=== PATIENT | female | born 1935 | race Caucasian/White ===

== ENCOUNTER → 2018-06-27 | Outpatient (REF) | LOC: ZLAB.WCH 18:02 | DX: Z01.89 Encounter for other specified special examinations (principal) ==

== ENCOUNTER → 2019-07-03 | Outpatient (REF) | LOC: COL.CARD 15:18 | DX: Z01.818 Encounter for other preprocedural examination (principal) ==

== ENCOUNTER → 2019-10-18 | Emergency (ER) | payer MEDICARE, BC ==
[~2019-10-18] VITALS: Ht 152.4 cm; Wt 68.2 kg
[~2019-10-18] MED LIST: ASPIRIN 81M81 MG/TA2 PO; SYNTHROID 0.10.15 MG PO
[2019-10-18 10:21] VITALS: TEMP 97.9
[2019-10-18 10:58] LABS: BASO # 0.1 (0.0-0.2); BASO % 0.8 % (0.0-2.0); EOS # 0.2 (0.0-0.7); EOS % 2.8 % (0-4.0); GRAN # 4.9 (1.4-6.5); GRAN % 63.3 % (42.2-75.2); HEMATOCRIT 41.4 % (37.0-47.0); LYMPH # 1.6 (1.2-3.4); MEAN CELL VOLUME 90 fl (80.0-100.0); MEAN CORPUSCULAR HEMOGLOBIN 30 pg (27.0-31.0); MEAN CORPUSCULAR HGB CONC 34 g/dl (33.0-37.0); MEAN PLATELET VOLUME 9.6 fl (7.4-10.4); MONO # 0.9 (0.1-0.6); MONO % 11.8 % (1.7-9.3); PLATELET COUNT 260 K/mm3 (130-400); RED BLOOD COUNT 4.62 M/mm3 (4.10-5.30); REDCELL DISTRIBUTION WIDTH-CV 12.9 % (11.5-14.5)
[2019-10-18 11:02] LABS: PROTHROMBIN TIME 11.2 SECONDS (9.7-12.8)
[2019-10-18 12:11] LABS: ALANINE AMINOTRANSFERASE 19 U/L (9-52); ALBUMIN 4.3 gm/dL (3.5-5.0); ALKALINE PHOSPHATASE 59 U/L (50-136); ANION GAP 9 mmol/L (7-16); AST,SGOT 34 U/L (15-37); BILIRUBIN,TOTAL 0.6 mg/dL (0.0-1.0); BLOOD UREA NITROGEN 23 mg/dL (7-17); CALCIUM 9.8 mg/dL (8.4-10.2); CARBON DIOXIDE 27 mmol/L (22-30); CHLORIDE 106 mmol/L (98-107); CREATININE, serum 0.85 (0.52-1.25); GLUCOSE 91 mg/dL (74-106); POTASSIUM 4.2 mmol/L (3.4-5.0); SODIUM 142 mmol/L (137-145); TOTAL PROTEIN 8.2 gm/dL (6.4-8.2)
[2019-10-18 12:23] LABS: TROPONIN-I < 0.012 ng/mL (0.000-0.035)
[2019-10-18 18:34] VITALS: BP 170/83; PULSE 78
== END ==
LOC: COL.ER 10:14
PROVIDERS: Emergency Medicine
DX: G45.9 Transient cerebral ischemic attack, unspecified (principal); Z79.82 Long term (current) use of aspirin
CPT/HCPCS: Q9967

== ENCOUNTER 2022-12-01 13:24 | Emergency (ER) | payer MEDICARE, BC ==
[~2022-12-01] VITALS: Ht 154.9 cm; Wt 54.5 kg
[2022-12-01 14:01] LABS: BASO # 0.1 K/mm3 (0.0-0.2); BASO % 0.8 % (0.0-2.0); EOS # 0.2 K/mm3 (0.0-0.7); EOS % 2.5 % (0.0-4.0); GRAN # 4.9 K/mm3 (1.4-6.5); GRAN % 64.2 % (42.2-75.2); HEMATOCRIT 38.6 % (37.0-47.0); HEMOGLOBIN 13.3 g/dl (12.5-16.0); LYMPH # 1.6 K/mm3 (1.2-3.4); LYMPH % 20.7 % (20.0-51.0); MEAN CELL VOLUME 88 fl (80.0-100.0); MEAN CORPUSCULAR HEMOGLOBIN 30 pg (27-31); MEAN CORPUSCULAR HGB CONC 35 g/dl (33.0-37.0); MEAN PLATELET VOLUME 9.6 fl (7.4-10.4); MONO # 0.9 K/mm3 (0.1-0.6); MONO % 11.7 % (1.7-9.3); PLATELET COUNT 264 K/mm3 (130-400); REDCELL DISTRIBUTION WIDTH-CV 12.8 % (11.5-14.5)
[2022-12-01 14:15] LABS: INR 1.1 (0.8-3.0); PROTHROMBIN TIME 13.1 SECONDS (9.7-12.8)
[2022-12-01 14:28] LABS: ALANINE AMINOTRANSFERASE 14 U/L (0-55); ALBUMIN 3.4 gm/dL (3.4-4.8); ALKALINE PHOSPHATASE 47 U/L (40-150); ANION GAP 9 mmol/L (7-16); AST,SGOT 26 U/L (5-34); BILIRUBIN,TOTAL 0.4 mg/dL (0.2-1.2); BLOOD UREA NITROGEN 23 mg/dL (10-20); CALCIUM 9.4 mg/dL (8.4-10.2); CARBON DIOXIDE 24 mmol/L (23-31); CHLORIDE 108 mmol/L (98-107); CREATININE, serum 0.98 mg/dL (0.57-1.11); GLUCOSE 124 mg/dL (70-99); SODIUM 141 mmol/L (136-145); TOTAL PROTEIN 6.8 gm/dL (6.2-8.1)
[2022-12-01 14:36] LABS: TROPONIN-I < 0.010 ng/mL (0.00-0.033)
[2022-12-01 16:08] VITALS: BP 159/70; PULSE 73; TEMP 97.5
== END 2022-12-01 16:08 | disposition home or self-care (01) ==
LOC: COL.ER 13:24
PROVIDERS: Personal Emergency Response Attendant
DX: S70.01XA Contusion of right hip, initial encounter (principal); R55 Syncope and collapse; W18.30XA Fall on same level, unspecified, initial encounter

== ENCOUNTER 2024-01-14 17:53 | Inpatient (IN) | payer MEDICARE, BC ==
[~2024-01-14] VITALS: Ht 154.9 cm; Wt 63.7 kg
[2024-01-14 18:12] LABS: BASO % 0.5 % (0.0-2.0); EOS # 0.1 K/mm3 (0.0-0.7); EOS % 0.9 % (0.0-4.0); GRAN # 5.5 K/mm3 (1.4-6.5); GRAN % 67.4 % (42.2-75.2); HEMOGLOBIN 13.6 g/dl (12.5-16.0); LYMPH # 1.7 K/mm3 (1.2-3.4); LYMPH % 20.6 % (20.0-51.0); MEAN CELL VOLUME 90 fl (80.0-100.0); MEAN CORPUSCULAR HEMOGLOBIN 30 pg (27-31); MEAN CORPUSCULAR HGB CONC 33 g/dl (33.0-37.0); MEAN PLATELET VOLUME 9.1 fl (7.4-10.4); MONO # 0.8 K/mm3 (0.1-0.6); MONO % 10.2 % (1.7-9.3); PLATELET COUNT 279 K/mm3 (130-400); RED BLOOD COUNT 4.54 M/mm3 (4.10-5.30); REDCELL DISTRIBUTION WIDTH-CV 12.7 % (11.5-14.5)
[2024-01-14 18:34] LABS: ALBUMIN 3.5 g/dL (3.4-4.8); BILIRUBIN,TOTAL 0.2 mg/dL (0.2-1.2); CALCIUM 9.2 mg/dL (8.4-10.2); CREATININE, serum 0.86 mg/dL (0.57-1.11); MAGNESIUM 2.1 mg/dL (1.6-2.6); POTASSIUM 4.6 mEq/L (3.5-4.5); TOTAL PROTEIN 7.1 g/dl (6.2-8.1)
[2024-01-14 18:40] LABS: TROPONIN-I 0.013 ng/mL (0.00-0.033)
[2024-01-14] MEDS ORDERED: Iohexol 300 - 100 ML VIAL IV ONE (18:49)
[2024-01-14] MEDS ORDERED: NS 60 ML IV ONE (18:50)
[2024-01-14 19:07] LABS: URINE APPEARANCE CLEAR (CLEAR/HAZY); URINE BLOOD NEGATIVE (NEGATIVE); URINE COLOR YELLOW (YELLOW); URINE GLUCOSE NEGATIVE (NEGATIVE); URINE KETONE NEGATIVE (NEGATIVE); URINE NITRATE NEGATIVE (NEGATIVE); URINE PROTEIN(semi-quant) NEGATIVE (NEGATIVE); URINE UROBILINOGEN 0.2 E.U/dL (0.2-1.0)
[2024-01-14 19:28] LABS: COLLECTION METHOD CLEAN CATCH
[2024-01-14] MEDS ORDERED: Clopidogrel 75 MG TAB PO ONE (20:00)
[2024-01-14] MEDS ORDERED: COLACE 100100 MG/CAP PO (21:03)
[2024-01-14] MEDS ORDERED: PEPCID40 MG PO (21:04)
[2024-01-14] MEDS ORDERED: NAMENDA 10MG TA10 MG PO (21:07)
[2024-01-14] MEDS ORDERED: COZAAR 50MG50 MG/TAB PO (21:07)
[2024-01-14] MEDS ORDERED: PREDNISONE 5MG5 MG PO (21:09)
[2024-01-14] MEDS ORDERED: MUCINEX 60600 MG/TA1 PO (21:09)
[2024-01-14] MEDS ORDERED: MIRALAX PA17 GM/Dose PO (21:12)
[2024-01-14] MEDS ORDERED: ULTRAM 50MG TAB50 MG PO ×2 (21:14)
[2024-01-14 21:55] VITALS: BP_SYST 171
[2024-01-14] MEDS ORDERED: hydrALAZINE 20 MG/ML 1 ML VIAL IV PRN (22:00)
[2024-01-14] MEDS ORDERED: Acetaminophen 325 MG TAB PO PRN (22:00)
[2024-01-14] MEDS ORDERED: NS 1,000 ML IV SCH (22:00)
[2024-01-14] MEDS ORDERED: SYNTHROID0.05 MG/TA PO (23:03)
--- NOTE | 2024-01-14 23:40 | NUR ---
Admitted to medical floor from ER ,, DX R/O CVA,, pt now speaking without problems, pt feels she is at her baseline, oriented to person/place but confused as to weekday/time. Very pleasant, speech clear, able to ambulate to bathroom with assist. Denies pain. IV fluids of NS at 75cc/hr.
[2024-01-14] MEDS ORDERED: levETIRAcetam 100 ML IV SCH (23:45)
[2024-01-15] VITALS (13 sets, daily range): BP systolic 123–156; BP diastolic 44–79; PULSE 71–81; TEMP 97–99.5
[2024-01-15] MEDS ORDERED: levETIRAcetam 500 MG/100 ML IVPB IV SCH (02:00)
[2024-01-15] MEDS ORDERED: VIACTIV PO (04:59)
[2024-01-15] MEDS ORDERED: VOLTAREN GEL 1%1 TU TP (04:59)
[2024-01-15] MEDS ORDERED: ALEVE 220MG220 MG PO (05:00)
--- NOTE | 2024-01-15 05:15 | NUR ---
Talked with Sidra LEIGH about med rec,, she has all the papers from the facility in [place]- states she is doing the Med Rec at this time.
[2024-01-15 05:44] LABS: BASO # 0.1 K/mm3 (0.0-0.2); BASO % 0.7 % (0.0-2.0); EOS # 0.2 K/mm3 (0.0-0.7); GRAN # 4.8 K/mm3 (1.4-6.5); GRAN % 62.7 % (42.2-75.2); HEMOGLOBIN 12.5 g/dl (12.5-16.0); LYMPH # 1.8 K/mm3 (1.2-3.4); LYMPH % 23.3 % (20.0-51.0); MEAN CELL VOLUME 88 fl (80.0-100.0); MEAN CORPUSCULAR HEMOGLOBIN 31 pg (27-31); MEAN CORPUSCULAR HGB CONC 35 g/dl (33.0-37.0); MEAN PLATELET VOLUME 9.3 fl (7.4-10.4); MONO # 0.8 K/mm3 (0.1-0.6); MONO % 10.9 % (1.7-9.3); PLATELET COUNT 248 K/mm3 (130-400); RED BLOOD COUNT 4.09 M/mm3 (4.10-5.30); REDCELL DISTRIBUTION WIDTH-CV 12.7 % (11.5-14.5)
[2024-01-15 05:47] LABS: HEMATOCRIT 36.1 % (37.0-47.0)
[2024-01-15 05:57] LABS: CALCIUM 8.5 mg/dL (8.4-10.2); CHOLESTEROL RISK RATIO 4.2; CREATININE, serum 0.8 mg/dL (0.57-1.11); POTASSIUM 4.2 mEq/L (3.5-4.5)
--- NOTE | 2024-01-15 06:06 | NUR ---
No changes - has been sleeping well tonight, VSS
[2024-01-15] MEDS ORDERED: predniSONE 5 MG TAB PO SCH (08:00)
[2024-01-15] MEDS ORDERED: guaiFENesin ER 600 MG **** subs to guaiFENesin 200 MG PO SCH (09:00)
[2024-01-15] MEDS ORDERED: Clopidogrel 75 MG TAB PO SCH (09:00)
[2024-01-15] MEDS ORDERED: Docusate Sodium 100 MG CAP PO SCH (09:00)
[2024-01-15] MEDS ORDERED: traMADol 50 MG TAB PO SCH (09:00)
[2024-01-15] MEDS ORDERED: guaiFENesin 200 MG TAB PO SCH (09:00)
[2024-01-15] MEDS ORDERED: Losartan 50 MG TAB PO SCH (09:00)
[2024-01-15] MEDS ORDERED: Famotidine 20 MG TAB PO SCH (09:00)
[2024-01-15] MEDS ORDERED: Polyethylene Glycol 3350 17 GM PDS PO SCH (09:00)
[2024-01-15] MEDS ORDERED: Memantine 10 MG TAB PO SCH (09:00)
--- NOTE | 2024-01-15 10:00 | NUR ---
Patient is resting in bed, awaiting for her breakfast. Alert and oriented to self and place. Family at bedside. Assessment completed, meds given. Able to take 3 at a time. Do not remember when was her last BM. Follows commands. No further needs at this time. Call light within reach, bed alarm on.
--- NOTE | 2024-01-15 12:15 | NUR ---
wallboard worker met with patient and her daughter, Britt, P# [phone], to discuss discharge planning. Patient lives in [place] at [facility]. PCP is Dr. Jones, pharmacy is [facility]. No issues affording medications. Britt is first point of contact, second is Elan, P# [phone]. Insurance is Medicare A and B and BCBS. DPOA-HC is Britt, Britt expressed she would try to bring in the documentation tomorrow as it is in her brother's safe and he is currently in the field farming. DME is walker. Patient needs monitored in shower at the [place] but otherwise independent with ADLS. Britt transports patient to and from appointments. Britt asked that she receive updates from doctor or nurse on Wednesday and would like a call when she is ready for discharge. Britt reports she likely would be unable to transport patient on Wednesday if she is ready for discharge at that time but is going to speak with family/friends to assist with this. Patient would like to return to [facility] and is open to home health services for PT and OT if needed. Britt reports patient previously used [facility] and would likely go with them again if it is recommended. Discharge plan: Return to [facility]
--- NOTE | 2024-01-15 13:56 | NUR ---
Data: Patient accepted Ccie visit for prayer. Patient's lunch had not yet arrived. She remembered that she forgot to order milk. Assessment: Patient was hungry and still learning hospital processes. Plan of Care: Ccie offered a prayer. Patient held Ccie's hand during the prayer; thanking Ccie afterwards. Ccie told Patient's Nurse about the milk.
--- NOTE | 2024-01-15 17:00 | NUR ---
Pt tried to get out of bed since she wanted to get ready to go for dinner. Pt was reoriented to place and situation. Assissted to order dinner.
--- NOTE | 2024-01-15 20:30 | NUR ---
Initial shift assessment done- was informed by aide that her o2 sat was 83 % when vitals were done, I went in and o2 sats were 96% on room air - no SOB. Pt had some family here tonight. Pt is somewhat confused as to month/date/time- knows place and person, knows year -- very pleasant. Bed alarm on- pt demonstrated how to call for assistance,, Seizure precautions in place. Tele on, 73/min/ NSR. Neuros all intact- pt states she feels "just fine". VSS.
[2024-01-15] MEDS ORDERED: Atorvastatin 40 MG TAB PO SCH (21:00)
[2024-01-15] MEDS ORDERED: Carboxymethylcellulose PF Ophth 0.4 ML DROPPERETTE OP PRN (21:15)
[2024-01-16] VITALS (11 sets, daily range): BP systolic 98–169; BP diastolic 72–83; PULSE 70–83; TEMP 97.4–98.2
--- NOTE | 2024-01-16 05:53 | NUR ---
Quiet night, VSS, did get some good sleep last night, very pleasant this morning- remains somewhat confused to date/time. bed alarm on. Has been up to bathroom with walker-steady on feet.
--- NOTE | 2024-01-16 08:30 | NUR ---
Patient resting in bed, breakfast arriving. Alert and oriented to self. Assessment complted, meds given. No further needs at this time. Call light within reach.
[2024-01-16] MEDS ORDERED: LIPITOR 40MG TA40 MG PO (11:54)
[2024-01-16] MEDS ORDERED: PLAVIX 75MG TAB75 MG PO (11:54)
[2024-01-16] MEDS ORDERED: KEPPRA 500MG500 MG PO (11:56)
--- NOTE | 2024-01-16 13:56 | NUR ---
SW provided Medicare.gov list of HH providers to patient. Discussed patient's preferences. Reviewed notes of converation previous SW had with patient's daughter related to [facility] having used [facility] in the past. Referral faxed to [facility] in preparation of patient's discharge. Discharge plan: home to [facility] with HH
--- NOTE | 2024-01-16 20:34 | NUR ---
Shift assessment complete. Patient sleeping upon entering. Continues to be confused as to where she is, RN reminded her that she is in the hospital in [place]. States she is not having "much pain" at the moment. Reminded her on how to use her call light when needed and ensured call light is within reach. Bed is locked and in low position.
[2024-01-17 01:10] VITALS: BP_SYST 139
[2024-01-17 03:11] VITALS: BP 139/83; PULSE 65; TEMP 97.6
[2024-01-17 05:00] VITALS: BP_SYST 139
[2024-01-17 07:38] VITALS: BP 166/67; PULSE 61; TEMP 97.9
[2024-01-17 08:30] VITALS: BP_SYST 166
--- NOTE | 2024-01-17 09:00 | NUR ---
PATIENT RESTING IN BED UPON ENTERING ROOM THIS MORNING. SHIFT ASSESSMENT COMPLETED. PATIENT ORIENTED X3. UPDATED ON POC. PATIENT DENIES PAIN. FALL PRECAUTIONS IN PLACE, BED ALARMS ON, CALL LIGHT WITHIN REACH. WILL CONTINUE TO MONITOR.
[2024-01-17] MEDS ORDERED: Gadoterate 15 ML VIAL IV ONE (09:06)
[2024-01-17] MEDS ORDERED: OLANZapine 2.5 MG,Water For Injection,Sterile 0.5 ML IM ONE (10:45)
--- NOTE | 2024-01-17 10:54 | NUR ---
sanitation worker hosing machinery attended clinical rounding and was informed pt can discharge today to [facility] with [facility]. JEROMY called daughter per JEROMY notes to inform her. She was agreeable to this plan. JEROMY went over the IM from Medicare over the phone. Britt provided verbal consent and JEROMY Mackenzie was a witness. Original in chart. JEROMY took a copy to patient's room and she had no concerns about the IM or discharge plan. JEROMY called daughter again who reports she would arrange for family transport. JEROMY informed RN Hope of family transport being arranged. JEROMY faxed discharge orders to [facility] and [facility]. Discharge Plan: return to Assisted Living with [facility]
--- NOTE | 2024-01-17 12:26 | NUR ---
IV AND TELEMETRY REMOVED. DISCHARGE INSTRUCTIONS REVIEWED, GRANDDAUGHTER AT BEDSIDE. ALL QUESTIONS ANSWERED. PATIENT ESCORTED OFF OF UNIT BY VIA [facility]AFF.
[2024-01-17] MEDS ORDERED: levETIRAcetam 500 MG TAB PO SCH (21:00)
== END 2024-01-17 12:27 | disposition home health service (06) | DRG 68 ==
LOC: COL.ER 17:53 → MEDICAL 21:56
PROVIDERS: Emergency Medicine; Nurse Practitioner Family; ADMIT Internal Medicine
DX: I65.01 Occlusion and stenosis of right vertebral artery (principal); I65.23 Occlusion and stenosis of bilateral carotid arteries; I10 Essential (primary) hypertension; E03.9 Hypothyroidism, unspecified; F03.90 Unspecified dementia, unspecified severity, without behavioral disturbance, psychotic disturbance, mood disturbance, and anxiety; K21.9 Gastro-esophageal reflux disease without esophagitis; M19.90 Unspecified osteoarthritis, unspecified site; G31.9 Degenerative disease of nervous system, unspecified; Z66 Do not resuscitate; Z86.73 Personal history of transient ischemic attack (TIA), and cerebral infarction without residual deficits; Z85.3 Personal history of malignant neoplasm of breast; Z79.890 Hormone replacement therapy; Z79.899 Other long term (current) drug therapy; Z79.82 Long term (current) use of aspirin; Z23 Encounter for immunization
CPT/HCPCS: A9575; J1650; J1953; J7030; J7512; Q9967